=== PATIENT | female | born 1960 | race Caucasian/White ===

== ENCOUNTER 2018-01-03 10:44 | Outpatient (CLI) | payer MEDICAID, SELFPAY ==
[2018-01-03 11:22] LABS: Abs Immature Grans 0.03 k/cumm (0.0-0.09); Absolute Basophil Count 0.06 k/cumm (0.0-0.2); Absolute Eosinophil Count 0.51 k/cumm (0.0-0.7); Absolute Lymphocyte Count 2.32 k/cumm (1.2-3.4); Absolute Monocyte Count 0.98 k/cumm (0.11-0.7); Absolute Neutrophil Count 5.04 k/cumm (1.2-6.7); Basophils % 0.7; Eosinophils % 5.7; HCT 41.7 % (36.0-46.0); HGB 13.5 g/dL (12.0-15.5); Immature Grans % 0.3; Mean Corp. HGB Concentration 32.4 g/dL (32.0-36.0); Mean Corpuscular Hemoglobin 32.2 pg (27.0-33.0); Mean Corpuscular Volume 99.5 fL (80-95); Mean Platelet Volume 9.4 fL (8.0-11.0); Neutrophils % 56.3; Platelet Count 292 x1000/uL (130-400); RBC 4.19 m/cumm (4.00-5.20); RBC Distribution Width 13.4 % (11.7-14.6); White Blood Cell Count 8.94 k/cumm (4.4-10.8)
[2018-01-03 12:14] LABS: Hemoglobin A1C 5.7 % (4.5-6.2)
[2018-01-03 12:44] LABS: ALT 26 U/L (12-78); AST 18 U/L (15-37); Albumin 3.8 g/dL (3.4-5.0); Alkaline Phosphatase 146 U/L (46-116); Anion Gap 11.5 mmol/L (3-11); BUN 13 mg/dL (7-18); Bilirubin, Total 0.3 mg/dL (0.2-1.0); CO2 26.5 mmol/L (21.0-32.0); CREATININE 0.89 mg/dL (0.55-1.02); Calcium 10.1 mg/dL (8.5-10.1); Chloride 105 mmol/L (98-107); Cholesterol 178 mg/dL (50-200); Glucose 99 mg/dL (70-100); HDL Cholesterol 36 mg/dL (40-60); LDL CHOLESTEROL 119 mg/dL (<100); Potassium 4.4 mmol/L (3.5-5.1); Sodium 143 mmol/L (136-145); TSH 1.21 uIU/mL (0.358-3.74); Total Protein 7.7 g/dL (6.4-8.2); Triglyceride 198 mg/dL (30-150)
== END 2018-01-03 11:04 ==
PROVIDERS: PCP Family Medicine; Visit Provider Nurse Practitioner Psychiatric/Mental Health
DX: F32.2 Major depressive disorder, single episode, severe without psychotic features (principal); E11.9 Type 2 diabetes mellitus without complications
CPT/HCPCS: 36415; 80053; 80061; 83721; 83036; 84443; 85025

== ENCOUNTER 2018-01-13 11:42 | Emergency (ER) | payer MEDICAID, SELFPAY ==
[2018-01-13 11:47] VITALS: BP 148/74; PULSE 57; RESP 16; TEMP 37; O2SAT 99
--- NOTE | 2018-01-13 12:26 | DI.CT_ITS ---
SYMPTOMS/DIAGNOSIS: HEADACHE, PULSATING, ? ACUTE CVA/MASS/BLEED CT BRAIN: Noncontrast. Comparison 09/17/15. The ventricles and sulci are consistent with the patient's age. No intracranial hemorrhage, infarct, midline shift or mass effect is identified. The ventricles are intact. The basilar cisterns are patent. The visualized paranasal sinuses are clear. No fluid levels are seen. The mastoid air cells are well pneumatized. The calvarium is intact. IMPRESSION: No acute intracranial process. The findings were discussed with the emergency department on the date of the examination.
[2018-01-13 13:26] LABS: HGB 13.7 g/dL (12.0-15.5); Mean Corp. HGB Concentration 31.9 g/dL (32.0-36.0); Mean Corpuscular Volume 100.5 fL (80-95); Mean Platelet Volume 9.6 fL (8.0-11.0); Platelet Count 353 x1000/uL (130-400); RBC 4.28 m/cumm (4.00-5.20); RBC Distribution Width 13.3 % (11.7-14.6); White Blood Cell Count 8.44 k/cumm (4.4-10.8)
[2018-01-13 13:40] LABS: Anion Gap 7.1 mmol/L (3-11); BUN 20 mg/dL (7-18); CO2 28.9 mmol/L (21.0-32.0); CREATININE 0.86 mg/dL (0.55-1.02); Chloride 110 mmol/L (98-107); Glucose 98 mg/dL (70-100); Potassium 4.2 mmol/L (3.5-5.1); Sodium 146 mmol/L (136-145)
[2018-01-13 13:57] LABS: PTT Activated 24.8 sec (21.0-31.4); Prothrombin Time 10.2 sec (9.3-10.8)
[2018-01-13] MEDS: Ketorolac 30 MG/ML VIAL IVP (14:46)
[2018-01-13] MEDS: Prochlorperazine 10 MG/2 ML VIAL IVP (14:46)
[2018-01-13] MEDS: diphenhydrAMINE 50 MG/ML VIAL 25 MG IVP (14:46)
[2018-01-13] MEDS: Normal Saline 1,000 ML 1000 ML IV (14:46)
--- NOTE | 2018-01-13 14:46 | ED.GENADUL_ITS ---
Discharge Plan Disposition Patient Disposition: HOME Condition: Improving Discharge Details Chief Complaint: Headache Clinical Impression: Tension headache, Cervical strain, Blurred vision, Migraine Primary Care Provider: Christopher Dockery ED Provider: Nissa Barfield Home Meds and New Rx's Prescriptions: New diazepam [Valium] 5 mg tablet 5 mg PO TID PRN (Reason: muscle spasm) Qty: 12 RF: 0 oxycodone 5 mg tablet 5 mg PO Q6H PRN (Reason: pain) Qty: 7 RF: 0 Continue clonazepam [Klonopin] 0.5 MG tablet 0.5 mg PO TID Qty: 60 RF: 0 aripiprazole [Abilify] 15 MG tablet 20 mg PO HS RF: 0 ranitidine HCl 150 MG tablet 150 mg PO HS Qty: 90 RF: 3 levothyroxine [Synthroid] 50 MCG tablet 50 mcg PO DAILY Qty: 90 RF: 3 gabapentin 800 MG tablet 800 mg PO TID Qty: 180 RF: 3 multivitamin [Daily Multiple] 1 EACH tablet 1 ea PO DAILY Qty: 90 RF: 3 aspirin 81 MG tablet,delayed release (DR/EC) 81 mg PO DAILY Qty: 90 RF: 4 omeprazole 40 MG capsule,delayed release(DR/EC) 40 mg PO DAILY Qty: 90 RF: 3 blood-glucose meter [Glucocom Blood Glucose] 1 EACH kit 1 ea Miscellaneous DAILY Qty: 1 RF: 0 lancets [OneTouch Delica Lancets] 1 EACH misc 1 ea Miscellaneous DAILY Qty: 90 RF: 3 ONETOUCH ULTRA TEST STRIPS 1 EACH strip 1 ea Miscellaneous DAILY Qty: 90 RF: 3 riboflavin (vitamin B2) 100 mg tablet 200 mg PO BID Qty: 360 RF: 3 buspirone 10 MG tablet 10 mg PO BID RF: 0 citalopram 20 MG tablet 40 mg PO DAILY RF: 0 magnesium oxide 400 MG capsule 400 mg PO HS RF: 0 Discharge Instructions Instructions: Cervical Strain (ED), Migraine Headache (ED), Tension Headache ( ED) Additional Instructions: Drink plenty of fluids and get plenty of rest. You should receive a call from care management regarding follow-up with optometry or ophthalmology next week. Return immediately to the emergency department any worsening or new concerning symptoms. Discharge Data Discharge Date/Time-TO BE ENTERED AT DEPARTURE: 01/13/18 19:45 Discharge Physician: Nissa Barfield Medical Decision Making 57yo F with a history of migraine, anxiety, depression, diabetes who presents to the ED with a complaint of headache and bilateral neck pain for the past 2 days after lifting a box. Patient states the pain is worse with movement of her head and is described as aching, 6/10. She does admit to relief with ibuprofen but she did not take any today. Blood pressure 148/74, remainder vitals within normal limits. Patient appears nontoxic and in no acute distress. She has tenderness palpation of her bilateral paraspinal cervical region and pain with movement of her head. Her headache appears consistent likely with a tension headache due to a cervical strain from lifting a box. She has no other focal deficits. Patient did not endorse any blurry vision on arrival but upon asking, admitted that she did note blurry vision in her left eye while in triage. OD 20/70, OS blurry, OU 20/50. Differential diagnosis includes tension headache, cervical strain, migraine, dehydration, electrolyte abnormality. Patient denies sudden onset of headache, thunderclap, and no focal deficits so doubt subarachnoid hemorrhage. She denies any fever and no meningeal signs so do not suspect meningitis. Will obtain stat CT head, labs. CT head and negative. Will give Toradol, Compazine, Benadryl and IV fluids. 1730 -- CTA head and neck negative. Patient admits to improvement of head and neck pain after meds but still some neck pain. We will give a dose of oxycodone. Will call neurology to discuss. 1800 --discussed with Dr. Morales -states that as CTA head and neck and CT head negative and no focal deficits with isolated left eye blurry vision, outside of ruling out carotid dissection, or acute cranial cause, may be isolated to the eye. Would recommend follow-up with ophthalmology or optometry. Patient has been in a moore bed. Will moved to a room to do fundoscopic exam. 1830 --patient admits to significant pain with light from fundoscopic exam. Her left eye appears normal to inspection, normal cornea, no haziness no steamy cornea, no injection. No afferent pupillary defect. No pain with EOMI. will discuss with [facility] ophthalmology. 184 --discussed with Dr. Purvis from [facility] Ophthalmology -if patient's eye appears normal to inspection with obvious evidence of glaucoma, uveitis, optic neuritis, orbital disease and if intraocular pressure normal, her photophobia may be likely due to a migraine. Recommends repeating visual acuity as patient may be able to assess something on the eye chart with further questioning. Recommends further evaluation by optometry or ophthalmology Dr. Lazcano. 191: Intraocular pressure in both eyes normal. Left eye 6, right eye 9. Repeat visual acuity OS 20/100, OD 20/70, OU 20/50. Patient admits to improvement of neck pain with oxycodone. Patient states he otherwise feels good to go home. Patient placed on care management list to help arrange for a follow-up appointment with [facility] on Tuesday or early next week. Patient instructed to return with any concerns immediately. HPI General Mode of arrival: ambulatory . Date/Time Provider Initiated Documentation: 01/13/18 12:23 . Limitations to Documentation: no limitations . Information obtained by: patient . HPI Narrative: 57yo F with a history of migraine, anxiety, depression, diabetes who presents to the ED with a complaint of headache and bilateral neck pain for the past 2 days after lifting a box. She states the headache is on the top of her head and extends from the back of her neck up to the top of her head. Patient states the pain is worse with movement of her head and is described as aching, 6/10. She does admit to relief with ibuprofen but she did not take any today. She denies known fever, chest pain, shortness of breath, abdominal pain , weakness, numbness. PMH: GERD, Hyperlipidemia, DM, Migraine, TERRANCE, COPD, Diabetes insipidus, Anxiety , Depression Surgical history: Tubal ligation, Hysterectomy, Dental extraction, Cholecystectomy, Cataract surgery, Knee arthroscopy, Appendectomy Social history: Smokes tobacco, Denies alcohol or drugs Meds: See list Allergies: See list PCP: Dr Dockery Related Data Home Medications Medication Instructions Recorded Confirmed clonazepam [Klonopin] 0.5 mg PO TID #60 tab-cap 10/10/15 01/18/18 aripiprazole [Abilify] 20 mg PO HS tab-cap 05/31/16 01/18/18 ranitidine HCl 150 mg PO HS #90 tab-cap 03/01/17 01/18/18 levothyroxine [Synthroid] 50 mcg PO DAILY #90 tab-cap 05/20/17 01/18/18 gabapentin 800 mg PO TID #180 tab-cap 06/08/17 01/18/18 aspirin 81 mg PO DAILY #90 tab-cap 07/01/17 01/18/18 multivitamin [Daily Multiple] 1 ea PO DAILY #90 tab-cap 07/01/17 01/18/18 omeprazole 40 mg PO DAILY #90 tab-cap 07/01/17 01/18/18 buspirone 10 mg PO BID 08/19/17 01/18/18 citalopram 40 mg PO DAILY 08/23/17 01/18/18 magnesium oxide 400 mg PO HS 08/23/17 01/18/18 blood-glucose meter [Glucocom #1 kit 10/07/17 01/18/18 Blood Glucose] lancets [OneTouch Delica Lancets] #90 ea 10/07/17 01/18/18 riboflavin (vitamin B2) 100 mg 200 mg PO BID #360 tab-cap 12/30/17 01/18/18 tablet diazepam [Valium] 5 mg PO TID PRN #12 tab 01/13/18 01/18/18 oxycodone 5 mg PO Q6H PRN #7 tab 01/13/18 01/18/18 Previous Rx's Medication Instructions Recorded ranitidine HCl 150 mg PO HS #90 tab-cap 03/01/17 levothyroxine [Synthroid] 50 mcg PO DAILY #90 tab-cap 05/20/17 gabapentin 800 mg PO TID #180 tab-cap 06/08/17 aspirin 81 mg PO DAILY #90 tab-cap 07/01/17 multivitamin [Daily Multiple] 1 ea PO DAILY #90 tab-cap 07/01/17 omeprazole 40 mg PO DAILY #90 tab-cap 07/01/17 blood-glucose meter [Glucocom #1 kit 10/07/17 Blood Glucose] lancets [OneTouch Delica Lancets] #90 ea 10/07/17 riboflavin (vitamin B2) 100 mg 200 mg PO BID #360 tab-cap 12/30/17 tablet diazepam [Valium] 5 mg PO TID PRN #12 tab 01/13/18 oxycodone 5 mg PO Q6H PRN #7 tab 01/13/18 Allergies Allergy/AdvReac Type Severity Reaction Status Date / Time divalproex sodium Allergy Mild Unverified 01/18/18 09:55 fluoxetine Allergy Mild Unverified 01/18/18 09:55 trazodone Allergy Mild Unverified 01/18/18 09:55 carbamazepine [From Tegretol] Allergy Unverified 01/18/18 09:55 propranolol Allergy Unverified 01/18/18 09:55 salt Allergy Mild Uncoded 01/18/18 09:55 General Stated Complaint: Headache PABLITO: 3 Review of Systems Review of Systems All systems reviewed & are unremarkable except as noted in HPI and below Constitutional Denies chills, Denies excessive sweating, Denies fatigue, Denies fever(s), Reports headache(s), Denies weakness and Denies weight loss Eyes Reports blurry vision (L eye) ENT Denies vertigo, Denies dizziness, Denies otalgia, Reports headache(s), Denies nasal congestion, Reports neck pain, Denies sore throat and Denies throat swelling Cardiovascular Denies chest pain, Denies syncope, Denies rapid heart rate and Denies dyspnea Respiratory Denies dyspnea Gastrointestinal Denies abdominal pain, Denies diarrhea and Denies vomiting Genitourinary Denies hematuria, Denies dysuria and Denies flank pain Musculoskeletal Denies back pain, Denies joint swelling and Reports neck pain Integumentary/Breasts Denies lesions and Denies rash Neurologic Denies behavioral changes, Denies confusion, Denies vertigo, Denies dizziness, Denies syncope, Reports headache(s) and Denies weakness Psychiatric Denies behavioral changes, Denies confusion and Denies depression Endocrine Denies excessive sweating and Denies fatigue Hematologic/Lymphatic Denies easy bruising and Denies lymphadenopathy Allergic/Immunologic Denies throat swelling PFSH Family History Mother No problems noted. Grandfather Heart disease Hyperlipidemia Grandmother Diabetes Medical History Bipolar disorder in remission Elevated hemoglobin A1c measurement GERD (gastroesophageal reflux disease) Hyperlipidemia Migraine with aura Nephrogenic diabetes insipidus Obstructive sleep apnea Prolapse of female pelvic organs Tobacco use Tremor Social History Smoking/Tobacco Use Status: Current every day Surgical History Appendectomy Arthroplasty of knee (08/29/17) Cholecystectomy (04/17/84) Extraction of cataract Ligation of fallopian tube (04/18/01) Meniscectomy Thyroid Tooth extraction Vaginal hysterectomy (11/03/16) Exam Const General: cooperative, healthy appearing and other (appears mildly uncomfortable) Orientation: alert and awake HENVA Head: normal to inspection Ears: hearing grossly normal bilaterally, external ears normal and TM's normal bilaterally General nose exam: external nose normal Face and sinus: normal facial exam Mouth: oral mucosae normal Teeth and gingiva: dentition normal Throat: posterior oropharynx normal Eyes General: appearance normal, both eyes and all related structures Eyelids: eyelids normal Pupils: PERRL EOM: EOM intact bilaterally Neck Neck: normal visual inspection Lymphatic: no lymphadenopathy noted Chest Chest: normal inspection of the chest Resp Effort & Inspection: normal respiratory effort and able to speak in complete sentences Auscultation: clear to auscultation bilaterally Cardio Rate: regular rate Rhythm: regular rhythm GI Inspection: normal to inspection Palpation: soft, not firm, no guarding, no hepatosplenomegaly, no masses and nontender Auscultation: normal bowel sounds Back/Spine/Pelvis Cervical Spine: cervical muscular tenderness (bilateral) and No cervical spinal tenderness Thoracic/Lumbar Spine: No thoracic spinal tenderness and No lumbar spinal tenderness Skin General skin exam: no rashes or lesions noted Neuro General: alert, awake and oriented x3 Cranial Nerves: other (Cn III-XII grossly intact) Cognition: normal cognition Speech: speech normal Motor: muscle tone normal throughout and strength 5/5 throughout Sensory Exam: no sensory deficits noted Extrem General: normal to inspection, full ROM, normal capillary refill and no edema Psych Appearance: grossly normal Mental Status: mental status grossly normal Speech and Movement: speech and movement normal Affect: normal affect Thought Process: normal Course Vital Signs Temperature 98.6 F 01/13/18 11:47 Pulse 57 L 01/13/18 11:47 Respiratory Rate 16 01/13/18 11:47 Blood Pressure 148/74 H 01/13/18 11:47 Pulse Oximetry 99 01/13/18 11:47 Temperature 98.6 F 01/13/18 11:47 Temperature Source Temporal Artery Scan 01/13/18 11:47 Pulse 57 L 01/13/18 11:47 Respiratory Rate 16 01/13/18 11:47 Respiratory Effort 01/13/18 11:51 Blood Pressure 148/74 H 01/13/18 11:47 Blood Pressure Position Sitting 09/28/18 11:47 Pulse Oximetry 99 01/13/18 11:47 Oxygen Delivery Method Room Air 01/13/18 11:47 Oxygen Flow Rate 0 01/13/18 11:47 Pain Level 5 01/13/18 11:47 Lab/Test Results Lab/Test Results: Laboratory Tests Range/Units 01/13/18 01/13/18 01/13/18 13:15 13:15 13:15 WBC (4.4-10.8) k/cumm 8.44 RBC (4.00-5.20) m/cumm 4.28 Hgb (12.0-15.5) g/dL 13.7 Hct (36.0-46.0) % 43.0 MCV (80-95) fL 100.5 H MCH (27.0-33.0) pg 32.0 MCHC (32.0-36.0) g/dL 31.9 L RDW (11.7-14.6) % 13.3 Plt Count (130-400) x1000/uL 353 MPV (8.0-11.0) fL 9.6 PT (9.3-10.8) sec 10.2 INR (1.0-3.5) 1.0 APTT (21.0-31.4) sec 24.8 Sodium (136-145) mmol/L 146 H Potassium (3.5-5.1) mmol/L 4.2 Chloride (98-107) mmol/L 110 H Carbon Dioxide (21.0-32.0) mmol/L 28.9 Anion Gap (3-11) mmol/L 7.1 BUN (7-18) mg/dL 20 H Creatinine (0.55-1.02) mg/dL 0.86 Estimated GFR/1.73 m2 (mL/min/1.73m2) >= 60.00 Glucose (70-100) mg/dL 98 Calcium (8.5-10.1) mg/dL 10.0
[2018-01-13] MEDS: Omnipaque 350 MG/ML 100 ML BTL IJ (15:40)
--- NOTE | 2018-01-13 15:55 | DI.CT_ITS ---
SYMPTOM/DIAGNOSIS: LT EYE BLURRY VISION, R/O ANEURYSM CT ANGIOGRAPHY CERVICAL AND CRANIAL: 01/13 CT angiography of the cranial cervical region was performed from the level of the aortic arch to the cerebral vertex. The lungs are clear. Tracheal laryngeal structures appear intact. No gross cervical mass or adenopathy seen. No evidence of intracranial mass, lesion or enhancing lesion. The orbital structures appear intact. The aortic arch is unremarkable. Vertebral arteries appear normal from the level of the arch to the basilar artery with no evidence of aneurysm, stenosis or dissection. Basilar artery is unremarkable in appearance. Common internal and external carotid arteries appear normal with no evidence of aneurysm, stenosis or dissection to the level of the [place]. Middle anterior and posterior cerebral arteries appear intact bilaterally with no evidence of aneurysm, stenosis or dissection. CONCLUSION: Negative CT angiography, craniocervical.
--- NOTE | 2018-01-13 16:25 | DI.VRAD_ITS ---
EXAM: CT Angiography Head With Intravenous Contrast CLINICAL HISTORY: 57 years old, female; Signs and symptoms; Visual disturbance; Other visual defect; Patient HX: L eye blurry vision; Additional info: R/O aneurysm TECHNIQUE: Axial computed tomographic angiography images of the head with intravenous contrast using CT angiography protocol. MIP reconstructed images were created and reviewed. Coronal reformatted images were created and reviewed. COMPARISON: No relevant prior studies available. FINDINGS: Right internal carotid artery: No acute findings. Intracranial segment is patent with no significant stenosis. No aneurysm. Right anterior cerebral artery: Unremarkable. No occlusion or significant stenosis. No aneurysm. Right middle cerebral artery: Unremarkable. No occlusion or significant stenosis. No aneurysm. Right posterior cerebral artery: Unremarkable. No occlusion or significant stenosis. No aneurysm. Right vertebral artery: Unremarkable as visualized. Left internal carotid artery: No acute findings. Intracranial segment is patent with no significant stenosis. No aneurysm. Left anterior cerebral artery: Unremarkable. No occlusion or significant stenosis. No aneurysm. Left middle cerebral artery: Unremarkable. No occlusion or significant stenosis. No aneurysm. Left posterior cerebral artery: Unremarkable. No occlusion or significant stenosis. No aneurysm. Left vertebral artery: Unremarkable as visualized. Basilar artery: Unremarkable. No occlusion or significant stenosis. No aneurysm. IMPRESSION: Normal head CTA. EXAM: CT Angiography Neck With Intravenous Contrast CLINICAL HISTORY: 57 years old, female; Signs and symptoms; Visual disturbance; Other visual defect; Patient HX: L eye blurry vision; Additional info: R/O aneurysm TECHNIQUE: Axial computed tomographic angiography images of the neck with intravenous contrast using CT angiography protocol. MIP reconstructed images were created and reviewed. Coronal reformatted images were created and reviewed. COMPARISON: CT HEAD WO 01/13/2018 12:35 PM FINDINGS: VASCULATURE: Right common carotid artery: Unremarkable. No significant stenosis. No dissection or occlusion. Right internal carotid artery: Unremarkable. Extracranial segment is patent with no significant stenosis. No dissection or occlusion. Right external carotid artery: Unremarkable. No occlusion. Right vertebral artery: Unremarkable. No significant stenosis. No dissection or occlusion. Left common carotid artery: Unremarkable. No significant stenosis. No dissection or occlusion. Left internal carotid artery: Unremarkable. Extracranial segment is patent with no significant stenosis. No dissection or occlusion. Left external carotid artery: Unremarkable. No occlusion. Left vertebral artery: Unremarkable. No significant stenosis. No dissection or occlusion. NECK: Bones/joints: No acute fracture. No dislocation. Soft tissues: Unremarkable as visualized. No mass. CAROTID STENOSIS REFERENCE USING NASCET CRITERIA: % ICA stenosis = (1 - narrowest ICA diameter/diameter of distal cervical ICA) x 100. Mild - <50% stenosis. Moderate - 50-69% stenosis. Severe - 70-94% stenosis. Near occlusion - 95-99% stenosis. Occluded - 100% stenosis. IMPRESSION: Normal neck CTA. Dictated and Authenticated by: Romeo Joy MD. Ordering:JUSTIN MCKEON MD
[2018-01-13] MEDS: oxyCODONE 5 MG TAB PO ×2 (18:30→19:34)
[2018-01-13 19:43] VITALS: BP 148/74; PULSE 57; RESP 16; TEMP 37; O2SAT 99
--- NOTE | 2018-01-17 08:37 | PDOC.ERCMPRO ---
Care Management Progress Note 01/17/18-Pt seen for pain with blurry vision on 01/13/[address] Chan Barfield. Referral was faxed and spoke with Ayanna at [facility]. Pt has limitations with transportation and was unable to take their emergency appt for today and has been booked for 01/20/18 at 10:20am. Pt was contacted and she will call [facility] to set up a ride.
--- NOTE | 2018-01-17 09:42 | CMPROGNOTE_ITS ---
Care Management Progress Note 01/17/18-Pt seen for pain with blurry vision on 01/13/[address] Chan Barfield. Referral was faxed and spoke with Ayanna at [facility]. Pt has limitations with transportation and was unable to take their emergency appt for today and has been booked for 01/20/18 at 10:20am. Pt was contacted and she will call [facility] to set up a ride.
== END 2018-01-13 19:45 | disposition home or self-care (01) ==
PROVIDERS: Emergency Provider Physician Assistant; PCP Family Medicine
DX: S16.1XXA Strain of muscle, fascia and tendon at neck level, initial encounter (principal); G43.909 Migraine, unspecified, not intractable, without status migrainosus; G44.209 Tension-type headache, unspecified, not intractable; H53.8 Other visual disturbances; E11.9 Type 2 diabetes mellitus without complications; J44.9 Chronic obstructive pulmonary disease, unspecified; F17.210 Nicotine dependence, cigarettes, uncomplicated
CPT/HCPCS: 36415; 70496; 70498; 80048; 85027; 96361; 96374; 96375; 99285; 70450; 85610; 85730; J0780; J1200; J1885; J3490

== ENCOUNTER 2021-06-11 00:32 | Outpatient (CLI) | payer MEDICAID, SELFPAY ==
--- NOTE | 2021-06-11 09:15 | DI.NM_ITS ---
APPROVED REPORT Exam: Pharmacologic Patient Location: Out-Patient Room/Bed: Stress Nurse: Kaylyn Balderas RN Ordering Provider:HONEY LEBLANC, Contact Number: [phone] BMI: 36.57 Baseline Rhythm: Sinus Bradycardia Indications: Chest pain Medical History Medical History: NSTEMI (05/2020), hypertension, hypelipidemia, diabetes, CVD, diabetes, obesity, TERRANCE, COPD, smoker, bipolar disorder, anxiety, depression, migraines, gerd Cardiac Medications: Aspirin, atorvastatin, nitroglycerin, torsemide, ipratropium, advair diskus, alb uterol sulfate Allergies: Divalproex sodium, ethylparaben, fluoxetine, trazodone, carbamazepine, propranolol Cardiac Risk Factors: Hypertension, hyperlipidemia, diabetes, smoker (current), obesity, COPD, CVD, f amily hx Previous Cardiac Procedures: Cardiac cath 04/2020 Pretest Chest Pain Characteristics: Baseline mild SOB Exercise History: Sedentary Physical Disabilities: None Lung Sounds: Clear to auscultation Heart Sounds: Regular Stress Test Details Test: Exercise stress converted to pharmacologic stress due to failure to obtain a diagnostic stress test. Reason for pharmacologic stress test: changed from exercise stress test due to inability to reach t arget heart rate. Nuclear Acquisition: Rest Tc-99m/Stress Tc-99m 1 day Rest Isotope: Tc-99m Sestamibi. Dose: 11.0 Date: 06/11/2021 Injection Time: 0850 Stress Isotope: Tc-99m Sestamibi. Dose: 37.0 Date: 06/11/2021 Injection Time: 1015 HR Resting HR Supine: 54 bpm Max Heart Rate (APMHR): 160.262487 bpm Resting HR Standin bpm Target HR (85% APMHR): 136.067957 bpm Max HR Achieved: 100 bpm % of APMHR: 62.50 Recovery HR: 60 bpm BP Resting BP Supine: 110/82 mmHg Resting BP Standin/84 mmHg Max BP: 138/80 mmHg Recovery BP: 110/78 mmHg ECG Resting ECG: Sinus Bradycardia Ectopy: None Stress ECG: Sinus Rhythm ST Change: Nondiagnostic low heart rate Arrhythmia: None Recovery ECG: Sinus Rhythm Recovery ST Change: Nondiagnostic low heart rate Recovery Arrhythmia: None Clinical Reason for Termination: Fatigue Stress Symptoms: General Fatigue, Dyspnea Exercise duration: 1 min15 sec Highest Stage Reached: Stage 1: 1.7 mph at 10% grade. Exercise capacity: 2.28 METs Rate Pressure Product: 22034 Stress ECG Conclusion 1. The resting electrocardiogram was within normal limits 2. The patient exercised briefly on the treadmill and also received pharmacologic stress with regaden oson 3. Peak heart rate achieved was 62% of predicted for age 4. Electrocardiographic portion of the test was nondiagnostic due to inadequate heart rate 5. See MPI report Stress Test Summary STAGE Time (mins) Speed (mph) Grade (%) HR BP SYMPTOMS METS Supine 54 110/82 Standing 60 110/84 Baseline mild SOB, SpO2 96% 1 3 1.7 10 86 Moderate SOB, SpO2 95% 4.6 1 min post Lexiscan injection 100 124/88 Moderate SOB, SpO2 96% 3 min post Lexiscan injection 78 138/80 Moderate SOB, SpO2 98% 6 min post Lexiscan injection 63 122/78 Mild SOB, SpO2 98% 9 min post Lexiscan injection 60 110/78 Mild SOB, SpO2 95% Exercise stress test stopped at minute 1:15 due to patient request, reported symptoms of fatigue and moderate SOB. Exercise stress test changed to pharmacologic due to inability to reach target heart ra te. Pt tolerated pharmacologic testing well. MPI Conclusion Normal myocardial perfusion without evidence of ischemia or prior infarction EF 54%, normal wall motion Radiologist Interpretation Radiologist agrees with [facility] Sitter's Interpretation. Radiologist Interpretation by: Colten Mina MD Interpretation Date/Time: 06/17/2021 10:11:11
[2021-06-11] MEDS: Regadenoson 0.4 MG/5 ML SYR IVP (10:40)
== END 2021-06-11 00:52 ==
PROVIDERS: Visit Provider Family Medicine
DX: R07.89 Other chest pain (principal)
CPT/HCPCS: 78452; 93017; J2785

== ENCOUNTER 2022-04-14 09:46 | Outpatient (CLI) | payer MEDICAID, SELFPAY ==
[2022-04-14 09:59] VITALS: BP 131/72; PULSE 60; RESP 20; TEMP 37; O2SAT 96
--- NOTE | 2022-04-14 10:26 | DI.RAD_ITS ---
Exam(s) XR PAIN CLINIC LUMBAR SP 2V EXAM: XR PAIN CLINIC LUMBAR SP 2V CLINICAL HISTORY: Dx: Lumbar Radiculopathy TECHNIQUE: 2D and realtime digital imaging was performed. CONTRAST MATERIAL: Refer to procedure report. COMPARISON: No exams were available for comparison FINDINGS: Fluoroscopy was provided for Dr. Drew during the performance of a lumbar epidural joint injection. Pl ease refer to the procedure report for complete details. Ka,r=8.87 mGy IMPRESSION:
--- NOTE | 2022-04-14 10:26 | PDOC.PAIN ---
Date of service: 04/14/22 Time of Service: 10:33 [facility] Clinic Procedure Note Procedure Note Procedure Note: Lumbar Epidural Steroid Injection Procedure Note Pre-operative diagnosis: lumbar radiculopathy Post-operative diagnosis: same as above COMMENTS: patient has back pain with left leg radiation. MRI L spine showed disc bulge at L4-5 causing foraminal stenosis. Jillian Diamond has been referred to the [facility] for lumbar epidural steroid injection. The patient was greeted by the nurse who verified patients name and . Patient was then taken to the fluoroscopy suite. The patient was interviewed and the medial record reviewed. There were no medical, pharmacologic, radiographic, or other structural contraindications to attempting fluoroscopically guided lumbar epidural steroid injection. Risks and expected side effects as well as potential benefits of the procedure were reviewed and voiced concerns expressed. The patient consent form was signed and witnessed. Standard patient time-out procedure was performed. The patient was placed in the prone position on the fluoroscopy table and automated blood pressure cuff and pulse oximeter applied. The skin entry point for entering/approaching the epidural space by a L4-5 and marked. Following thorough chlorhexadine preparation of the skin and draping and 1% lidocaine infiltration of the skin entry point and subcutaneous tissues, a 18 gauge Touhy needle was placed under fluoroscopic guidance and with loss of resistance technique into the epidural space. Needle tip placement and depth were aided and confirmed by fluoroscopy. There was no paresthesia or return of blood or CSF through the needle. 1 cc's of Omnipaque 240 was injected with clear epidural spread confirmed with fluoroscopy. 80mg depomedrol was injected. There was not any unusual discomfort expressed by Jillian Diamond. Patient's vital signs were stable throughout the procedure and were as recorded in nursing records. Follow up plans and appointments were discussed with patient. Post procedure instruction was given as documented in nursing records and having met discharge criteria and was discharged from the [facility]. COMMENTS: If this procedure is helpful, it can be completed up to 3 times per 12 months. Pre-procedure VAS score 6/10. Post-procedure VAS score 4/10. Kayden Drew MD Pain Management
[2022-04-14] MEDS: Omnipaque 240 MG/ML 50 ML BTL IJ (10:27)
[2022-04-14] MEDS: methylPREDNISolone ACETATE 80 MG/ML VIAL IJ (10:27)
[2022-04-14 10:39] VITALS: BP 122/60; PULSE 61; RESP 18; O2SAT 95
== END 2022-04-14 09:47 | disposition home or self-care (01) ==
LOC: PC 09:49
PROVIDERS: Visit Provider Internal Medicine
DX: M54.16 Radiculopathy, lumbar region (principal)
CPT/HCPCS: 62323; 72100; J1040; Q9967